=== PATIENT | male | born 2000 | race Caucasian/White ===

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

== ENCOUNTER 2020-04-05 13:47 | Emergency (ER) | payer OTHER ==
[~2020-04-05] VITALS: Ht 188 cm; Wt 56.7 kg
[2020-04-05 14:09] VITALS: BP 108/56; Ht 188 cm; Wt 56.7 kg
== END 2020-04-05 15:30 | disposition left against medical advice (07) ==
LOC: ED 13:47
DX: Z53.21 Procedure and treatment not carried out due to patient leaving prior to being seen by health care provider (principal)

== ENCOUNTER 2020-04-05 17:03 | Emergency (ER) | payer OTHER ==
[~2020-04-05] VITALS: Ht 188 cm; Wt 56.7 kg
[2020-04-05 17:13] VITALS: Ht 188 cm; Wt 56.7 kg
== END 2020-04-05 18:39 | disposition left against medical advice (07) ==
LOC: ED 17:03
DX: Z53.21 Procedure and treatment not carried out due to patient leaving prior to being seen by health care provider (principal)

== ENCOUNTER 2020-04-06 16:17 | Emergency (ER) | payer OTHER ==
[~2020-04-06] VITALS: Ht 177.8 cm; Wt 56.7 kg
[2020-04-06 16:59] LABS: BASOPHIL % 0.5 % (0-2); PLATELET COUNT 221 x10^3mcL (130-400); RED CELL DISTRIBUTION WIDTH 13.3 % (11.5-14.5)
[2020-04-06 17:11] LABS: CALCIUM 8.7 mg/dL (8.5-10.1); CARBON DIOXIDE 27.2 mmol/L (21-32); CHLORIDE SERUM 106 mmol/L (98-107); CREATININE SERUM 0.8 mg/dL (0.7-1.3); GFR1 > 60 mL/min; GLUCOSE SERUM 121 mg/dL (74-106); POTASSIUM SERUM 3.1 mmol/L (3.5-5.1); SODIUM SERUM 143 mmol/L (136-145)
[2020-04-06 17:15] LABS: ALBUMIN 3.6 g/dL (3.4-5.0); ALKALINE PHOSPHATASE 61 U/L (46-116); ALT/SGPT 21 U/L (16-63); AST/SGOT 13 U/L (15-37); BILIRUBIN TOTAL 1.7 mg/dL (0.20-1.00); TOTAL PROTEIN, SERUM 6.3 g/dL (6.4-8.2)
[2020-04-06 18:40] VITALS: Ht 177.8 cm; Wt 56.7 kg
[2020-04-06 19:42] LABS: microscopic required? NO
[2020-04-06 19:50] LABS: UA SPECIFIC GRAVITY 1.015 (1.005-1.035); urine erythrocyte NEGATIVE (NEGATIVE)
[2020-04-06 20:29] LABS: AMPHETAMINE QUAL UR POSITIVE (See below)
[2020-04-07 00:20] VITALS: BP 101/61
== END 2020-04-07 00:20 | disposition home or self-care (01) ==
LOC: ED 16:17
PROVIDERS: Specialist
DX: F19.10 Other psychoactive substance abuse, uncomplicated (principal); F10.10 Alcohol abuse, uncomplicated; F32.9 Major depressive disorder, single episode, unspecified; F41.9 Anxiety disorder, unspecified; F29 Unspecified psychosis not due to a substance or known physiological condition; Z88.1 Allergy status to other antibiotic agents; Z88.6 Allergy status to analgesic agent; Z20.828 Contact with and (suspected) exposure to other viral communicable diseases
CPT/HCPCS: G0480